=== PATIENT | female | born 1950 | race Caucasian/White ===

== ENCOUNTER → 2022-06-10 | Outpatient (CLI) | payer MEDICARE, SELFPAY | END | disposition home or self-care (01) | LOC: LABSPEC 16:30 | PROVIDERS: Visit Provider Urology | DX: N30.01 Acute cystitis with hematuria (principal) | CPT/HCPCS: 87086; 87088; 87186 ==

== ENCOUNTER → 2022-06-19 | Outpatient (CLI) | payer MEDICARE, SELFPAY ==
--- NOTE | 2022-06-19 11:06 | CT_ITS ---
STUDY: CT ABDOMEN AND PELVIS WITH AND WITHOUT CONTRAST REASON FOR EXAM: Female, 72 years old. Pelvic pain, fever, hematuria RADIATION DOSAGE (If Supplied By Facility): CTDIvol = ( 22.53 ) mGy, DLP = ( 3157.75 ) mGycm TECHNIQUE: Transaxial images were obtained from the dome of the diaphragm to the symphysis pubis with oral contrast. IV 100mL Isovue-300 was administered. Sagittal and coronal images were reconstructed. Delayed images also performed Individualized dose optimization techniques were used for this CT. COMPARISON: None. FINDINGS: Chronic interstitial changes noted in the lung bases with nonspecific pleural thickening and calcified granuloma in the left lung base. The visualized portions of the heart are within normal limits. Normal liver. There are surgical clips in the gallbladder fossa consistent with a prior cholecystectomy. There are multiple benign calcified granulomata of the spleen. Normal pancreas. Normal bilateral adrenal glands. Age consistent cortical thinning noted in both kidneys without obstructive uropathy or suspicious solid renal lesion. Postsurgical changes noted in the stomach, no anastomotic leak is noted. Nondistended fluid-filled small bowel loops are noted consistent with ileus which may be due to retained stool throughout the entirety of the colon. The appendix is visualized and appears normal. Appendix seen on axial image 58 There is diffuse atherosclerotic calcification of the abdominal aorta with elongation and tortuosity, but without a demonstrated aneurysm. Normal inferior vena cava. Normal retroperitoneum. The bladder distends normally without wall thickening or associated inflammation. There is air within the nondependent bladder likely from recent catheterization. Small fat-containing inguinal hernia. Structures show degenerative change, replaced right hip joint free of complication. There is a grade 1 spondylolisthesis at L3-4. CT/CT Abd/Pelvis W/WO Contrast IMPRESSION: Bladder distends normally without wall thickening or pericystic inflammation. There is air within the bladder suggesting recent catheterization. Age consistent cortical thinning in both kidneys without obstructive uropathy or suspicious solid renal lesion. Small bowel ileus, likely due to retained stool throughout the entirety of the colon Degenerative bony changes Electronically Signed: Boom Pittman MD at 15:07 EDT ,
[2022-06-19 13:56] LABS: CREATININE FINGERSTICK 1.3 mg/dL (0.55-1.02)
== END | disposition home or self-care (01) ==
LOC: CT 11:04
PROVIDERS: PCP Family Medicine; Referring Provider Urology; Visit Provider Urology
DX: N30.21 Other chronic cystitis with hematuria (principal)
CPT/HCPCS: 74178; Q9967

== ENCOUNTER → 2022-06-26 | Outpatient (CLI) | payer MEDICARE, SELFPAY | END | disposition home or self-care (01) | LOC: LABSPEC 16:33 | PROVIDERS: PCP Family Medicine; Visit Provider Urology | DX: N30.21 Other chronic cystitis with hematuria (principal) | CPT/HCPCS: 87077; 87086; 87088; 87186 ==

== ENCOUNTER → 2022-09-29 | Outpatient (CLI) | payer MEDICARE, SELFPAY | END | disposition home or self-care (01) | LOC: LABSPEC 16:37 | PROVIDERS: PCP Family Medicine; Referring Provider Urology; Visit Provider Urology | DX: N30.01 Acute cystitis with hematuria (principal) | CPT/HCPCS: 87077; 87086; 87088; 87186 ==

== ENCOUNTER → 2022-10-10 | Outpatient (CLI) | payer MEDICARE, SELFPAY ==
--- NOTE | 2022-10-10 09:30 | BLA_PTH ---
PATIENT: DELPHINE CONTEH LOC: [facility] U#:[id number] AGE/SX: 72/F ROOM: RE10/10/[address]: Dr. Sudhir Olivia MD : 1950 BED: DIS: 10/10/2022 SPEC #: [id number] RECD: 10/10/22 14:51 STATUS: CHRISTINA REAndrew #: [id number] DOMINGO: 10/10/22 09:[address]: Sudhir Olivia DEPT: SURGICAL PATHOLOGY RECD BY: Yuliana Fernandez ENTERED: 10/13/22 11:20 SP TYPE: BLADDER BX OTHR DR: Dr. Jf Bustamante MD [facility] Tissues: Urinary bladder, NOS Procedures: Surgery Specimen Level IV HEADER OPERATION: Cystoscopy with retrograde pyelograms PRE-OP DIAGNOSIS: Chronic cystitis with hematuria, abnormal radiologic findings on diagnostic imaging of renal pelvis, ureter or bladder TISSUE SUBMITTED: Bladder biopsy MICROSCOPIC DIAGNOSIS Urinary bladder, biopsy: Chronic follicular cystitis. AM:caridad 10/14/2022 MICROSCOPIC DESCRIPTION Slides are reviewed. GROSS DESCRIPTION Received in fixative is one container labeled with the patient's name and designated bladder biopsy. The specimen consists of one irregular fragment of light hull soft tissue that measures 0.3 x 0.2 x 0.1 cm. The specimen is totally submitted in one cassette. / SJ:caridad 10/13/2022 TC:3 CPT: 77544
== END | disposition home or self-care (01) ==
LOC: LABSPEC 15:04
PROVIDERS: PCP Family Medicine; Referring Provider Urology; Visit Provider Urology
DX: N30.30 Trigonitis without hematuria (principal); N30.21 Other chronic cystitis with hematuria; R93.41 Abnormal radiologic findings on diagnostic imaging of renal pelvis, ureter, or bladder
CPT/HCPCS: 88305

== ENCOUNTER → 2022-10-21 | Outpatient (CLI) | payer MEDICARE, SELFPAY ==
--- NOTE | 2022-10-21 16:53 | CT_ITS ---
INDICATION: URETHRAL FISTULA EXAMINATION: CT PELVIS BONE - CT Pelvis W/O Contrast Injection TECHNIQUE: Routine noncontrast bone CT protocol was performed of the pelvis. 2-D reformats were performed by the technologist. A radiation dose optimization technique was used for this scan. IV Contrast dosage and agent: None. COMPARISON: None. FINDINGS: Status post cholecystectomy. Moderate cortical thinning right kidney mild cortical thinning left kidney. There is soft tissue density at the anorectal junction. This could represent mass. This measures 6.09 x 6.70 cm. 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 There is no evidence of air within the urinary bladder. SOFT TISSUES: No soft tissue swelling or gas. No radiopaque foreign body. BONES/JOINTS: Status post right hip arthroplasty. Severe degenerative disc disease L2-S1 with grade 2 spondylolisthesis L3-4. No acute fracture or subluxation. Normal alignment. Preservation of the joint space. No sclerotic or destructive changes. CT/Pelvis without IV Contrast IMPRESSION: Urinary bladder normal in appearance. Soft tissue density and anorectal junction. Rule out mass. Right hip arthroplasty. Degenerative changes lumbar spine. Status post cholecystectomy. Cortical thinning of the kidneys. Electronically Signed: Arnol Sanchez MD, JODIE at 8:17 EST ,
== END | disposition home or self-care (01) ==
LOC: CT 16:52
PROVIDERS: PCP Family Medicine; Referring Provider Urology; Visit Provider Urology
DX: N36.0 Urethral fistula (principal)
CPT/HCPCS: 72192

== ENCOUNTER → 2022-11-10 | Outpatient (CLI) | payer MEDICARE, SELFPAY ==
--- NOTE | 2022-11-10 13:04 | MRI_ITS ---
EXAM: MR PELVIS WITHOUT AND WITH INTRAVENOUS CONTRAST CLINICAL INDICATION: ABN FINDINGS ON IMAGING TECHNIQUE: Multiplanar and multisequence MR images of the pelvis without and with intravenous contrast. This report was created using Incont report generation technology. CONTRAST: IV 19ml Clariscan COMPARISON: None. FINDINGS: BOWEL: No evidence of rectal or anal mass. No gel distention of the rectum to optimize imaging. APPENDIX: No evidence of acute appendicitis. INTRAPERITONEAL SPACE: Normal. No adnexal mass or free pelvic fluid. BLADDER: Prominent amount of air is present within the urinary bladder presumably related to recent instrumentation. REPRODUCTIVE: Uterus is absent. BONES/JOINTS: Normal. No suspicious lytic or blastic abnormality. SOFT TISSUES: Normal. No pelvic wall hernia. LYMPH NODES: Normal. No enlarged lymph nodes. MRI/Pelvis W/WO Contrast IMPRESSION: 1. No evidence of the rectoanal mass. 2. Prominent amount of urinary bladder air presumably related to recent instrumentation. Electronically Signed: Marcial Maurer MD at 15:47 EDT ,
[2022-11-10 14:06] LABS: CREATININE FINGERSTICK 1.5 mg/dL (0.55-1.02)
== END | disposition home or self-care (01) ==
LOC: MRI 12:59
PROVIDERS: PCP Family Medicine; Referring Provider Urology; Visit Provider Urology
DX: R93.41 Abnormal radiologic findings on diagnostic imaging of renal pelvis, ureter, or bladder (principal)
CPT/HCPCS: 72197; A9575

== ENCOUNTER 2023-01-06 09:36 | Day surgery (SDC) | payer MEDICARE, SELFPAY ==
[2023-01-06] MEDS: Lactated Ringers 1,000 ML 15 ML IV (10:20)
[2023-01-06 10:21] VITALS: BP 130/80; PULSE 72; RESP 16; TEMP 36.2; O2SAT 95; BMI 34.3
[2023-01-06 10:45] LABS: Bedside Glucose 182 mg/dL (74-106)
--- NOTE | 2023-01-06 11:05 | HP.PCM_ITS ---
History and Physical Date of Admission: 01/06/23 Intake Vital Signs ? 12/18/2312:40 Height 5 ft 4 in Weight: 200 lb 8 oz BMI 34.4 BP 138/76 H Blood Pressure Location Rt brachial Position Sitting Respiration 17 Pulse 74 Pulse Source Monitor Temp 97.3 F L Temp Source Temporal Pulse Oximetry (%) 98 Oxygen Delivery Method room air Intake Visit Reasons:?COLONOSCOPY Chief Complaint: colonoscopy PFSH Medical History?(Updated 12/18/22 @ 13:[address] Elie Mcfadden MD) Diabetes High blood pressure Family History?(Updated 12/18/22 @ 13:37 by Yaneth Campos) Mother ArthritisGrandfather DiabetesGrandfather CVA (cerebral vascular accident) HPI HPI HPI: Patient is a 72-year-old female here for discussion of colonoscopy.? Patient has been having recurrent UTIs as well as air in her bladder.? They have done CT scan with contrast that has not shown the fistula if there is one.? There is also concern for possible mass in the anal rectal junction on one of the CT scans. ROS General General: No weight change, appetite, fatigue, colon cancer, breast cancer or weakness HEENT HEENT: Yes eye surgery; No difficulty swallowing, eye injury, swollen glands or hoarseness Endo Endocrine: Yes diabetes mellitus; No thyroid disease, thyroid cancer, Hair loss, heat intolerance or cold intolerance Skin Skin: No rash or changing moles Breast Breast: No left breast lump, right breast lump, nipple discharge, breast pain, abnormal mammogram, abnormal US or breast enlargement Musc Musculoskeletal: Yes back problems and arthritis; No rheumatoid arthritis, gout or joint pain Cardio Cardiovascular: Yes heart attack; No murmur, pacemaker, heart disease, atrial fibrillation, high blood pressure, heart stent, palpitations, shortness of breat with exertion or chest pain Psych Psychiatric: No depression, anxiety or hearing voices Resp Respiratory: No shortness of breath, Yes sleep apnea, No cough, No COPD, No asthma, No emphysema and No wheezing Gastro Gastrointestinal: No abdominal pain, No nausea or vomiting, No diarrhea, No constipation, No blood in stool, No acid reflux, Yes hemorrhoids, No ulcers, No gallbladder problem and No black,tarry stools Ronal Hematologic: No blood thinners, No blood disorders, No bleeding, No anemia and No blood clots Neuro Neurologic: No system reviewed and no additional complaints, except as documented, No as per HPI, No abnormal gait, No abnormal hearing, No abnormal movements, No abnormal speech, No behavioral changes, No burning sensations, No confusion, No convulsions, No disequilibrium, No dizziness, No localized weakness, No frequent falls, No headache(s), No lack of coordination, No loss of vision, No memory loss, Yes numbness, No other visual disturbances, No radicular pain, No restless legs, No sensory deficit, No syncope, Yes tingling, No tremor(s), No weakness and No other Exam Const General: cooperative Orientation: alert and oriented x3 HENMT Head: normal to inspection Neck Neck: normal visual inspection and full ROM Chest Chest palpation & inspection: normal inspection of the chest Resp Effort & Inspection: normal respiratory effort Auscultation: clear to auscultation bilaterally Cardio Rate: regular rate Rhythm: regular rhythm GI Inspection: non-distended Palpation: soft and nontender Skin General: no rashes or lesions noted Neuro General: patient alert and patient oriented x3 Extrem General: full ROM Psych Appearance: grossly normal Mental Status: mental status grossly normal Assessment and Plan Assessment and Plan (1) Rectal mass: ?Status:?Acute ?Plan: The patient has been having recurrent UTIs as well as air in the bladder.? CT scan revealed some thickening of the anorectal junction and there is concern for mass.? The MRI did not reveal this mass.? I will perform a colonoscopy to check for inflammation of the anal rectal area or a mass.? Patient's last colonoscopy was over 10 years ago. I explained endoscopy in detail to the patient.? I explained the risks including but not limited to stroke or heart attack with anesthesia, perforation of the GI tract, bleeding, infection.? I explained that any of these could necessitate further emergency surgery.? The patient understands and all questions were answered sufficiently.? The patient wishes to proceed with procedure. Elie Mcfadden MD Pager: [facility] [address] [place] [address], [address] [place] [address] Office: I have examined the patient and the H&P has been reviewed. There are no clinical changes since date of exam.
[2023-01-06 11:35] VITALS: BP 109/59; BP 130/80; PULSE 64; RESP 16; TEMP 36.8; O2SAT 95
--- NOTE | 2023-01-06 11:37 | OP.CCLET_ITS ---
01/06/2023 Jf Bustamante Re : Colonoscopy procedure for Yanet Timmonsr Robby This procedure was performed on Friday, January 06, 2023. My impressions and recommendations are as follows: Impressions : - The entire examined colon is normal on direct and retroflexion views. - No specimens collected. Recommendations : - Discharge patient to home. - Resume previous diet. - Continue present medications. - Repeat colonoscopy is not recommended due to current age (66 years or older) for screening purposes. My findings are described in the full procedure note, which is enclosed. If I can be of further assistance, please feel free to contact me at Doctor phone number(s): , Work: . Sincerely, Elie Mcfadden MD 01/06/2023 11:36:51 AM This report has been signed electronically.
--- NOTE | 2023-01-06 11:37 | OP.COLON_ITS ---
Patient Name: Yanet Mercado Procedure Date: 01/06/2023 11:11 AM Date of : 1950 Age: 72 Procedure: Colonoscopy Indications: Recurrent UTI Providers: Elie Mcfadden MD Medicines: Monitored Anesthesia Care Patient Profile: This is a 72 year old female. Refer to note in patient chart for documentation of history and physical. Last Colonoscopy: several years ago. Complications: No immediate complications. Procedure: Pre-Anesthesia Assessment: - Prior to the procedure, a History and Physical was performed, and patient medications and allergies were reviewed. The patient's tolerance of previous anesthesia was also reviewed. The risks and benefits of the procedure and the sedation options and risks were discussed with the patient. All questions were answered, and informed consent was obtained. Prior Anticoagulants: The patient has taken no previous anticoagulant or antiplatelet agents. After reviewing the risks and benefits, the patient was deemed in satisfactory condition to undergo the procedure. After I obtained informed consent, the scope was passed under direct vision. Throughout the procedure, the patient's blood pressure, pulse, and oxygen saturations were monitored continuously. The colonoscope was introduced through the anus and advanced to the cecum, identified by appendiceal orifice and ileocecal valve. The colonoscopy was performed without difficulty. The patient tolerated the procedure well. The quality of the bowel preparation was good. Scope In: 11:19:58 AM Scope Withdrawal Time 0 hours 3 minutes 20 seconds Scope Out: 11:29:38 AM Total Procedure Duration Time 0 hours 9 minutes 40 seconds Findings: The entire examined colon appeared normal on direct and retroflexion views. Unable to locate a fistula or inflammation in rectum or sigmoid Impression: - The entire examined colon is normal on direct and retroflexion views. - No specimens collected. Recommendation: - Discharge patient to home. - Resume previous diet. - Continue present medications. - Repeat colonoscopy is not recommended due to current age (66 years or older) for screening purposes. Procedure Code(s): --- Professional --- 24849, Colonoscopy, flexible; diagnostic, including collection of specimen(s) by brushing or washing, when performed (separate procedure) Diagnosis Code(s): --- Professional --- N39.0, Urinary tract infection, site not specified CPT copyright 2017 [employer]. All rights reserved. The codes documented in this report are preliminary and upon any commodity sales deliverer review may be revised to meet current compliance requirements. Elie Mcfadden MD 01/06/2023 11:36:51 AM This report has been signed electronically. Number of Addenda: 0 Note Initiated On: 01/06/2023 11:11 AM
[2023-01-06 11:40] VITALS: BP 113/65; BP 130/80; PULSE 65; RESP 16; O2SAT 92
[2023-01-06 11:45] VITALS: BP 112/62; BP 130/80; PULSE 64; RESP 16; O2SAT 92
[2023-01-06 11:50] VITALS: BP 118/64; BP 130/80; PULSE 66; RESP 16; TEMP 36.4; O2SAT 92
[2023-01-06 12:10] VITALS: BP 130/80
== END 2023-01-06 12:40 | disposition home or self-care (01) ==
LOC: EN 09:37 → AC 09:41
PROVIDERS: PCP Family Medicine; Referring Provider Family Medicine; Visit Provider Surgery
PROC: 0DJD8ZZ Inspection of Lower Intestinal Tract, Via Natural or Artificial Opening Endoscopic (ICD-10-PCS; CPT 45378; principal; 2023-01-06 10:40)
DX: N39.0 Urinary tract infection, site not specified (principal); E11.9 Type 2 diabetes mellitus without complications; I10 Essential (primary) hypertension; K62.89 Other specified diseases of anus and rectum; Z87.440 Personal history of urinary (tract) infections; Z79.82 Long term (current) use of aspirin; Z79.899 Other long term (current) drug therapy
CPT/HCPCS: 45378; 82962; J7120; J2405

== ENCOUNTER → 2024-02-23 | Outpatient (CLI) | payer MEDICARE, SELFPAY | END | disposition home or self-care (01) | LOC: LABSPEC 16:34 | PROVIDERS: PCP Family Medicine; Referring Provider Urology; Visit Provider Urology | DX: R31.0 Gross hematuria (principal) | CPT/HCPCS: 87086; 87088; 87186 ==

== ENCOUNTER → 2024-04-11 | Outpatient (CLI) | payer MEDICARE, SELFPAY | END | disposition home or self-care (01) | LOC: LABSPEC 16:50 | PROVIDERS: PCP Family Medicine; Referring Provider Urology; Visit Provider Urology | DX: N30.00 Acute cystitis without hematuria (principal) | CPT/HCPCS: 87077; 87086; 87088; 87186 ==